=== PATIENT | female | born 1945 | race American Indian/Alaskan Native ===

== ENCOUNTER 2017-07-20 06:31 | Day surgery (SDC) | payer MEDICARE ==
[2017-07-20 07:01] VITALS: BMI 31.6
[2017-07-20] MEDS ORDERED: Propofol 10 mg/ml Inj (20 ML) ONE ×2 (09:03)
--- NOTE | 2017-07-20 09:07 | CP.SDSHP ---
Same Day Surgery H & P - History Proposed Procedure: Colonoscopy Pre-Op Diagnosis: History of colon polyps - Previous Medical/Surgical History Cardiac: Hypertension Pulmonary: Asthma Endocrine/Metabolic: Thyroid Disease Previous Surgical History: Hysterectomy, appendectomy - Allergies Allergies: Allergies No Known Allergies Allergy (Verified 09/15/13 00:48) - Current Medications Current Medications: See reconciliation sheet - Physical Exam General Appearance: WD WN female in NAD Vital Signs: Vital Signs 07/20/17 07:13 Temperature 97.6 F Pulse Rate 65 Respiratory 17 Rate Blood Pressure 145/72 O2 Sat by Pulse 98 Oximetry Mental Status: Alert & Oriented x3 Neuro: WNL Heart: WNL Lungs: WNL GI: WNL - {Optional Preform as Required} Abdomen: WNL - Impression Impression: High risk screenin, History of colon polyps Pt. Evaluated Today:Candidate for Anesthesia & Procedure: Yes - Date & Time Date: 07/20/17 Time: 09:07 Short Stay Discharge - Short Stay Discharge Admitting Diagnosis/Reason for Visit: P/H/ COLON POLYPS Disposition: HOME/ ROUTINE
[2017-07-20 10:02] VITALS: TEMP 97.5; O2SAT 100
[2017-07-20 10:03] VITALS: RESP 12
[2017-07-20 11:38] VITALS: BP 130/61; PULSE 84
== END 2017-07-20 11:15 | disposition home or self-care (01) ==
LOC: C.ENDO 06:31
PROVIDERS: ATTEND Internal Medicine Gastroenterology
DX: D12.4 Benign neoplasm of descending colon (principal); K57.30 Diverticulosis of large intestine without perforation or abscess without bleeding; K64.0 First degree hemorrhoids; R19.4 Change in bowel habit; I10 Essential (primary) hypertension; J45.909 Unspecified asthma, uncomplicated; Z87.19 Personal history of other diseases of the digestive system
CPT/HCPCS: 45385; 82948; 88305; J2704